=== PATIENT | female | born 1965 | race Caucasian/White ===

== ENCOUNTER 2016-12-31 05:57 | Emergency (ER) | payer SELFPAY ==
[~2016-12-31] VITALS: Ht 152.4 cm; Wt 67.0 kg
[2016-12-31 05:59] VITALS: BP 128/77; PULSE 102; RESP 16; TEMP 98; O2SAT 99
[2016-12-31] MEDS ORDERED: ZOFR4TAB PO (06:20)
[2016-12-31] MEDS ORDERED: BACT800T5 PO (06:20)
--- NOTE | 2016-12-31 06:23 | PD ---
HPI Chief Complaint: Cold / Flu Symptoms Time Seen by Provider: 06:20 Travel History International Travel<30 days: No Contact w/Intl Traveler<30days: No Traveled to known affect area: No History of Present Illness HPI 51-year-old white female presents to emergency department with a complaint of cough and congestion. She states that she's been sick now for the last for 5 days. It initially started off with nausea, vomiting and diarrhea. She last had vomiting last evening had some loose stool this morning. She has also developed some sinus congestion, runny nose, sore throat, cough, colored sputum and general malaise. She denies any abdominal pain. No dysuria or frequency. No rashes or lesions. Symptoms are moderate. She is a smoker. PFSH Past Medical History Depression: Yes Diabetes: Yes Patient Takes Glucophage: Yes Diminished Hearing: No Hypertension: Yes Tetanus Vaccination: Unknown Influenza Vaccination: No ?: Not Past Surgical History Surgical History: No Previous Surgery Social History Alcohol Use: No Tobacco Use: No Substance Use: No Allergies-Medications (Allergen,Severity, Reaction): Coded Allergies: Buspar (Verified Allergy, Unknown, 12/31/16) Chantix (Verified Allergy, Unknown, 12/31/16) Cipro (Verified Allergy, Unknown, 12/31/16) Wellbutrin (Verified Allergy, Unknown, 12/31/16) Review of Systems Except as stated in HPI: all other systems reviewed are Neg General / Constitutional: Positive: Fever, Chills Eyes: No: Blurred Vision, Photophobia HENT: Positive: Sore Throat, Congestion, No: Headaches, Earache Cardiovascular: No: Chest Pain or Discomfort, Palpitations Respiratory: Positive: Cough, No: Shortness of Breath, Wheezing Gastrointestinal: Positive: Nausea, Vomiting, Diarrhea, No: Abdominal Pain Genitourinary: No: Frequency, Dysuria Musculoskeletal: No: Myalgias, Arthralgias Skin: No Rash Physical Exam Narrative GENERAL: Well-developed, well-nourished in no acute distress. Nontoxic appearing. HEAD: Normocephalic, atraumatic. EYES: Pupils equal round and reactive. Extraocular motions intact. No scleral icterus. No injection or drainage. ENT: TMs clear without erythema. The external auditory canals clear. Nose: clear . Posterior pharynx is pink and moist. No tonsillar edema or exudate. Uvula midline. Airway patent. NECK: Trachea midline.Supple, nontender, moves head freely. No central bony tenderness or spasm. CARDIOVASCULAR: Regular rate and rhythm without murmurs, gallops, or rubs. RESPIRATORY: Few rhonchi. No wheezes or Rales. GASTROINTESTINAL: Abdomen soft, non-tender, nondistended. No hepato-splenomegaly , or palpable masses. No guarding. EXTREMITIES: No clubbing, cyanosis, or edema. No joint tenderness, effusion, or edema noted. BACK: Nontender without deformity or crepitance. No flank tenderness. Data Data Last Documented VS Vital Signs Date Time Temp Pulse Resp B/P Pulse Ox O2 Delivery O2 Flow Rate FiO2 12/31/16 06:07 16 12/31/16 05:59 98.0 102 128/77 99 MDM Medical Decision Making Medical Screen Exam Complete: Yes Emergency Medical Condition: Yes Medical Record Reviewed: Yes Differential Diagnosis MDM: High Differential diagnoses: Pneumonia, bronchitis, URI, asthma, RAD, vomiting, diarrhea Narrative Course This is bronchitis, vomiting, diarrhea Diagnosis Primary Impression: Bronchitis Additional Impressions: Diarrhea Qualified Code: R19.7 - Diarrhea, unspecified type Vomiting Qualified Code: R11.10 - Non-intractable vomiting, presence of nausea not specified, unspecified vomiting type Patient Instructions: General Instructions Departure Forms: Tests/Procedures, Work Release Special Instructions: No work 2-3 days. Additional Instructions: Rest. Increase fluids. Tylenol and Advil. Robitussin-DM. Bactrim DS. Zofran for nausea. Imodium A-D for diarrhea. Followup with your DrAnge in one week. Return to the ER for any problems. Med/Other Pt SpecificInfo: Prescription(s) given Scripts Ondansetron (Zofran)4 Mg Tab4 Mg PO Q6HR PRN (NAUSEA OR VOMITING) #6 TAB Prov:Noelle Philippe MD 12/31/16 Sulfamethoxazole-Trimethoprim (Bactrim DS)800-160 Mg Tab1 Tab PO BID #14 TAB Prov:Noelle Philippe MD 12/31/16 Disposition: 01 DISCHARGE HOME Condition: Stable Ramin Weaver Dec 31, 2016 06:23
[2016-12-31] MEDS ORDERED: CLON1 PO (06:24)
[2016-12-31] MEDS ORDERED: NORT75CA PO (06:24)
[2016-12-31] MEDS ORDERED: CARV12.5 PO (06:24)
[2016-12-31] MEDS ORDERED: BENA20TA PO (06:24)
[2016-12-31] MEDS ORDERED: METF1000 PO (06:24)
[2016-12-31] MEDS ORDERED: CITA20TA4 PO (06:24)
== END 2016-12-31 06:29 | disposition home or self-care (01) ==
LOC: NEPB 05:57
DX: J40 Bronchitis, not specified as acute or chronic (principal); R19.7 Diarrhea, unspecified; R11.10 Vomiting, unspecified; E11.9 Type 2 diabetes mellitus without complications; I10 Essential (primary) hypertension
CPT/HCPCS: 99283

== ENCOUNTER 2017-01-05 05:03 | Inpatient (IN) | payer SELFPAY ==
[~2017-01-05] VITALS: Ht 152.4 cm; Wt 69.7 kg
[2017-01-05] VITALS (9 sets, daily range): BP systolic 83–124; BP diastolic 53–71; PULSE 84–102; RESP 16–20; TEMP 96.3–97.9; O2SAT 94–99
[~2017-01-05 05:03] MED LIST: BACT800T5 PO; BENA20TA PO; CARV12.5 PO; CITA20TA4 PO; CLON1 PO; METF1000 PO; NORT75CA PO; ZOFR4TAB PO
[2017-01-05] MEDS ORDERED: methylPREDNISolone SOD SUCC 125 MG/2 ML VIAL IV PUSH ONE ×2 (05:30→05:45)
[2017-01-05] MEDS ORDERED: SODIUM CHLOR 0.9% 1000 ML INJ 1,000 ML IV ONE ×2 (05:30→06:45)
[2017-01-05] MEDS: RESP: ALBUTEROL 2.5 MG/IPRATROPIUM 0.5 MG NEB (SCH) INH (05:34)
[2017-01-05 05:37] LABS: BLOOD, URINE SMALL (NEG); GLUCOSE,URINE NEG (NEG); HYALINE CAST, URINE 1 /lpf (RARE); KETONE, URINE NEG (NEG); MUCUS URINE FEW /lpf (OCC); NITRITE,URINE NEG (NEG); SQUAMOUS EPITHELIAL CELL URINE 2 /hpf (0-5); URINE COLOR YELLOW (YELLW/STRAW)
[2017-01-05 05:38] LABS: COMMENT (UR) CULT NOT INDICATED; CULTURE IF INDICATED CULT NOT INDICATED
[2017-01-05 05:39] LABS: BASOPHIL % 0.5 % (0.0-2.0); EOSINOPHIL # 0.2 TH/MM3 (0-0.4); EOSINOPHIL % 1.5 % (0.0-4.0); HEMATOCRIT 38.5 % (35.0-46.0); HEMO FLAGS DIFF FINAL; LYMPH % 10.9 % (9.0-44.0); LYMPHOCYTE # 1.1 TH/MM3 (1.0-4.8); MEAN CELL VOLUME 85.6 FL (80.0-100.0); MEAN CORPUSCULAR HEMOGLOBIN 30.7 PG (27.0-34.0); MEAN CORPUSCULAR HGB CONC 35.8 % (32.0-36.0); MONO % 9.4 % (0.0-8.0); NEUT % 77.7 % (16.0-70.0); PLATELET COUNT 347 TH/MM3 (150-450); RED BLOOD COUNT 4.49 MIL/MM3 (4.00-5.30); WHITE BLOOD COUNT 10.3 TH/MM3 (4.0-11.0)
--- NOTE | 2017-01-05 05:40 | PD ---
HPI Chief Complaint: Abdominal Pain Time Seen by Provider: 05:14 Travel History International Travel<30 days: No Contact w/Intl Traveler<30days: No Traveled to known affect area: No History of Present Illness HPI This is a 51-year-old female history of hypertension, diabetes mellitus, tobacco use, who presents today with complaints of generalized malaise. Patient states she was seen here a week ago and diagnosed with a sinus infection. She was started on Bactrim. She states that she's had loose stools but reports they are actually less than when she had the bronchitis/sinusitis. She reports having generalized weakness. She also reports pain in her upper abdominal area. She reports that she has had fevers but states that her temperature is normally 95 and so her fevers are normal temperatures. She denies any chills. She does report a cough with no production. PFSH Past Medical History Depression: Yes Diabetes: Yes Patient Takes Glucophage: Yes Diminished Hearing: No Hypertension: Yes Tetanus Vaccination: Unknown Influenza Vaccination: No ?: Not Social History Alcohol Use: No Tobacco Use: Yes Substance Use: No Allergies-Medications (Allergen,Severity, Reaction): Coded Allergies: Buspar (Verified Allergy, Unknown, 01/05/17) Chantix (Verified Allergy, Unknown, 01/05/17) Cipro (Verified Allergy, Unknown, 01/05/17) Wellbutrin (Verified Allergy, Unknown, 01/05/17) Reported Meds & Prescriptions Reported Meds & Active Scripts Active Zofran (Ondansetron HCl) 4 Mg Tab 4 Mg PO Q6HR PRN Bactrim DS (Sulfamethoxazole-Trimethoprim) 800-160 Mg Tab 1 Tab PO BID Reported Klonopin (Clonazepam) 1 Mg Tab 1 Mg PO BID Nortriptyline (Nortriptyline HCl) 75 Mg Cap 75 Mg PO HS Citalopram (Citalopram Hydrobromide) 20 Mg Tab 20 Mg PO DAILY Coreg (Carvedilol) 12.5 Mg Tab 12.5 Mg PO BID Benazepril (Benazepril HCl) 20 Mg Tab 20 Mg PO DAILY Metformin (Metformin HCl) 1,000 Mg Tab 1,000 Mg PO BIDPC With meals Review of Systems Except as stated in HPI: all other systems reviewed are Neg General / Constitutional: Positive: Fever (subjective), No: Chills HENT: Positive: Headaches (mild), No: Neck Stiffness, Neck Pain Cardiovascular: No: Chest Pain or Discomfort, Palpitations Respiratory: Positive: Cough, Wheezing, No: Shortness of Breath Gastrointestinal: Positive: Nausea, Diarrhea, Abdominal Pain (epigastric discomfort), No: Vomiting Musculoskeletal: Positive: Weakness (generalized), No: Pain Neurologic: Positive: Weakness ( ), Headache (mild) Physical Exam Narrative GENERAL: Well-developed well-nourished female in no acute respiratory distress. SKIN: Warm and dry. HEAD: Atraumatic. Normocephalic. EYES: No scleral icterus. No injection or drainage. ENT: No nasal bleeding or discharge. Dry mucous membranes NECK: Trachea midline. Supple CARDIOVASCULAR: Regular rate and rhythm. No murmur appreciated. RESPIRATORY: Diffuse expiratory wheezing. No Rales appreciated. GASTROINTESTINAL: Abdomen soft, nondistended. She had subjective discomfort in her epigastrium. There was no rebound or guarding elicited. MUSCULOSKELETAL: No obvious deformities. No clubbing. No cyanosis. No edema. NEUROLOGICAL: Awake and alert. No obvious cranial nerve deficits. Motor grossly within normal limits. Normal speech. PSYCHIATRIC: Flat affect. Cooperative. Data Data Last Documented VS Vital Signs Date Time Temp Pulse Resp B/P Pulse Ox O2 Delivery O2 Flow Rate FiO2 01/05/17 06:23 84 17 96/57 99 Room Air 01/05/17 05:06 97.6 Orders Complete Blood Count With Diff (01/05/17 05:22) Comprehensive Metabolic Panel (01/05/17 05:22) Lipase (01/05/17 05:22) Urinalysis - C+S If Indicated (01/05/17 05:22) Chest, Single Ap (01/05/17 05:22) Iv Access Insert/Monitor (01/05/17 05:22) Ecg Monitoring (01/05/17 05:22) Albuterol-Ipratropium Neb (Duoneb Neb) (01/05/17 05:30) Sodium Chlor 0.9% 1000 Ml Inj (Ns 1000 M (01/05/17 05:30) Methylprednisolone So Succ Inj (Solumedr (01/05/17 05:45) Sodium Chlor 0.9% 1000 Ml Inj (Ns 1000 M (01/05/17 06:45) Labs Laboratory Tests Test 01/05/17 01/05/17 05:10 05:28 Urine Color YELLOW Urine Turbidity CLEAR Urine pH 6.0 Urine Specific [place] 1.011 Urine Protein TRACE mg/dL Urine Glucose (UA) NEG mg/dL Urine Ketones NEG mg/dL Urine Occult Blood SMALL Urine Nitrite NEG Urine Bilirubin NEG Urine Urobilinogen LESS THAN 2.0 MG/DL Urine Leukocyte Esterase NEG Urine RBC 2 /hpf Urine WBC 1 /hpf Urine Squamous Epithelial 2 /hpf Cells Urine Hyaline Casts 1 /lpf Urine Mucus FEW /lpf Microscopic Urinalysis Comment CULT NOT INDICATED White Blood Count 10.3 TH/MM3 Red Blood Count 4.49 MIL/MM3 Hemoglobin 13.8 GM/DL Hematocrit 38.5 % Mean Corpuscular Volume 85.6 FL Mean Corpuscular Hemoglobin 30.7 PG Mean Corpuscular Hemoglobin 35.8 % Concent Red Cell Distribution Width 13.0 % Platelet Count 347 TH/MM3 Mean Platelet Volume 8.0 FL Neutrophils (%) (Auto) 77.7 % Lymphocytes (%) (Auto) 10.9 % Monocytes (%) (Auto) 9.4 % Eosinophils (%) (Auto) 1.5 % Basophils (%) (Auto) 0.5 % Neutrophils # (Auto) 8.0 TH/MM3 Lymphocytes # (Auto) 1.1 TH/MM3 Monocytes # (Auto) 1.0 TH/MM3 Eosinophils # (Auto) 0.2 TH/MM3 Basophils # (Auto) 0.0 TH/MM3 CBC Comment DIFF FINAL Differential Comment Sodium Level 135 MEQ/L Potassium Level 3.6 MEQ/L Chloride Level 102 MEQ/L Carbon Dioxide Level 24.1 MEQ/L Anion Gap 9 MEQ/L Blood Urea Nitrogen 9 MG/DL Creatinine 0.78 MG/DL Random Glucose 173 MG/DL Calcium Level 9.1 MG/DL Total Bilirubin 0.2 MG/DL Aspartate Amino Transf 22 U/L (AST/SGOT) Alanine Aminotransferase 33 U/L (ALT/SGPT) Alkaline Phosphatase 81 U/L Total Protein 7.5 GM/DL Albumin 3.4 GM/DL Lipase 3809 U/L [facility] Medical Decision Making Medical Screen Exam Complete: Yes Emergency Medical Condition: Yes Medical Record Reviewed: Yes Differential Diagnosis Dehydration versus electrolyte arrangement versus pancreatitis Narrative Course 51-year-old female presents today with complaints of generalized malaise and abdominal pain. The patient has a history of diabetes mellitus. Blood work shows a lipase of 3900. The patient has no previous history of diabetes mellitus. The patient is not a heavy alcohol drinker. She's been given 1 L of IV fluid bolus followed by a second. There is a call out to the admitting physician. At this point the patient does not require pain medication. Patient also had diffuse expiratory wheezes and was given 2 nebulizer treatments. Diagnosis Primary Impression: Pancreatitis, acute Additional Impressions: Diabetes mellitus History of hypertension Reactive airway disease tobaccoism Meet Stewart MD Jan 05, 2017 05:40
[2017-01-05 06:07] LABS: ALT (GPT) 33 U/L (10-53); ANION GAP 9 MEQ/L (5-15); AST (GOT) 22 U/L (15-37); BICARBONATE 24.1 MEQ/L (21.0-32.0); BLOOD UREA NITROGEN 9 MG/DL (7-18); CHLORIDE 102 MEQ/L (98-107); POTASSIUM 3.6 MEQ/L (3.5-5.1); SODIUM (NA) 135 MEQ/L (136-145)
[2017-01-05 06:09] LABS: ALKALINE PHOSPHATASE 81 U/L (45-117); TOTAL BILIRUBIN ADULT 0.2 MG/DL (0.2-1.0)
--- NOTE | 2017-01-05 06:26 | RADRPT ---
EXAM DATE/TIME: 01/05/2017 05:40 [place] COMPARISON: No previous studies available for comparison. INDICATIONS : Shortness of breath. MEDICAL HISTORY : Diabetes mellitus type II. SURGICAL HISTORY : None. ENCOUNTER: Initial ACUITY: 1 day PAIN SCORE: 0/10 LOCATION: Bilateral chest FINDINGS: A single view of the chest demonstrates the lungs to be symmetrically aerated without evidence of mas s, infiltrate or effusion. The cardiomediastinal contours are unremarkable. Osseous structures are intact. CONCLUSION: No acute cardiopulmonary process. Stanley Piña MD on January 05, 2017 at 6:24 Board Certified Radiologist. This report was verified electronically.
[2017-01-05] MEDS ORDERED: ACETAMINOPHEN/HYDROcodone 325 MG/5 MG TAB PO PRN (07:00)
[2017-01-05] MEDS ORDERED: SODIUM CHLORIDE 0.9% FLUSH 5 ML FLUSH FLUSH PRN (07:00)
[2017-01-05] MEDS ORDERED: MORPHINE SULFATE 4 MG/ML INJ IV PRN (07:00)
[2017-01-05] MEDS ORDERED: ONDANSETRON HCL 4 MG/2 ML VIAL IVP PRN (07:00)
[2017-01-05] MEDS ORDERED: RESP: ALBUTEROL 2.5 MG/IPRATROPIUM 0.5 MG NEB (PRN) NEB (07:00)
[2017-01-05] MEDS ORDERED: BISACODYL 10 MG SUPP PR PRN (07:00)
[2017-01-05] MEDS ORDERED: DEXTROSE 50% IN WATER 50 ML VIAL(D50) IV PUSH PRN (07:00)
[2017-01-05] MEDS ORDERED: ACETAMINOPHEN 325 MG TAB PO PRN (07:00)
[2017-01-05] MEDS ORDERED: GLUCAGON 1 MG/ML VIAL OTHER PRN (07:00)
[2017-01-05] MEDS: CARVEDILOL 12.5 MG TAB PO SCH ×2 (09:00→21:44)
[2017-01-05] MEDS: clonazePAM 1 MG TAB PO SCH ×2 (09:00→22:49)
[2017-01-05] MEDS ORDERED: LISINOPRIL 20 MG TAB PO SCH (09:00)
[2017-01-05] MEDS: CITALOPRAM HYDROBROMIDE 20 MG TAB PO SCH (09:00)
[2017-01-05] MEDS: INSULIN ASPART SUPPLEMENTAL SCALE SQ SCH ×4 (09:29→22:00)
[2017-01-05] MEDS: PANTOPRAZOLE SODIUM 40 MG VIAL IV PUSH SCH ×2 (09:29→17:41)
[2017-01-05] MEDS: SODIUM CHLOR 0.9% 1000 ML INJ 1,000 ML IV SCH ×2 (09:29→17:47)
[2017-01-05] MEDS: SODIUM CHLORIDE 0.9% FLUSH 5 ML FLUSH FLUSH SCH ×2 (09:30→21:44)
[2017-01-05] MEDS: methylPREDNISolone SOD SUCC 40 MG/1 ML VIAL IV PUSH SCH ×2 (11:09→17:24)
[2017-01-05] MEDS ORDERED: NORTRIPTYLINE HCL 25 MG CAP PO SCH (21:00)
[2017-01-06] VITALS: BP 93/58; PULSE 85; RESP 17; TEMP 96; O2SAT 94
[2017-01-06] MEDS: methylPREDNISolone SOD SUCC 40 MG/1 ML VIAL IV PUSH SCH ×2 (01:40→05:43)
[2017-01-06 04:00] VITALS: BP 95/55; PULSE 81; RESP 17; TEMP 96.6; O2SAT 95
[2017-01-06] MEDS: SODIUM CHLOR 0.9% 1000 ML INJ 1,000 ML IV SCH (04:39)
[2017-01-06] MEDS: PANTOPRAZOLE SODIUM 40 MG VIAL IV PUSH SCH (05:43)
[2017-01-06] MEDS: INSULIN ASPART SUPPLEMENTAL SCALE SQ SCH (06:04)
[2017-01-06 07:07] LABS: HEMATOCRIT 34.8 % (35.0-46.0); MEAN CELL VOLUME 87.3 FL (80.0-100.0); MEAN CORPUSCULAR HEMOGLOBIN 29.3 PG (27.0-34.0); MEAN CORPUSCULAR HGB CONC 33.6 % (32.0-36.0); PLATELET COUNT 315 TH/MM3 (150-450); RED BLOOD COUNT 3.99 MIL/MM3 (4.00-5.30); RED CELL DISTRIBUTION WIDTH 12.9 % (11.6-17.2)
[2017-01-06 07:09] LABS: HEMO FLAGS AUTO DIFF
[2017-01-06 07:40] LABS: ALKALINE PHOSPHATASE 65 U/L (45-117); ALT (GPT) 27 U/L (10-53); ANION GAP 11 MEQ/L (5-15); AST (GOT) 10 U/L (15-37); BICARBONATE 19.5 MEQ/L (21.0-32.0); BLOOD UREA NITROGEN 8 MG/DL (7-18); CHLORIDE 110 MEQ/L (98-107); GLOMERULAR FILTRATION RATE 110 ML/MIN (>89); POTASSIUM 3.7 MEQ/L (3.5-5.1); SODIUM (NA) 140 MEQ/L (136-145); TOTAL BILIRUBIN ADULT 0.1 MG/DL (0.2-1.0)
--- NOTE | 2017-01-06 07:58 | HHI.HP ---
[facility] Service [facility] Primary Care Physician No Primary Care Physician Admission Diagnosis Acute pancreatitis, reactive airway disease, diabetes mellitus, htn Diagnoses: (1) Pancreatitis, acute Diagnosis: Principal (2) Reactive airway disease Diagnosis: Principal Chief Complaint: abdominal pain Travel History International Travel<30 Days: No Contact w/Intl Traveler <30 Da: No Traveled to Known Affected Are: No History of Present Illness patient is a 51 y/o female with history of hypertension, diabetes, chronic smoker who presented to ER with abdominal pain. she says that she some coughing and sneezing last week and she was seen in ER about a week ago and was discharged home with antibiotic with the impression of bronchitis. she started to have epigastric pain on . pain was associated with nausea and some chills. she denies any fever or diarrhea. the pain gradually got worse to the extent that she decided to come back to ER. Review of Systems Constitutional: COMPLAINS OF: Chills, DENIES: Fever, Weight loss, Night Sweats Eyes: DENIES: Blurred vision, Diplopia, Vision loss, Double Vision Ears, nose, mouth, throat: DENIES: Tinnitus, Vertigo, Throat pain, Epistaxis Respiratory: COMPLAINS OF: Cough, DENIES: Apneas, Snoring, Wheezing, Hemoptysis, Sputum production, Shortness of breath Cardiovascular: DENIES: Chest pain, Palpitations, Syncope, Dyspnea on Exertion , PND, Lower Extremity Edema, Orthopnea, Claudication Gastrointestinal: COMPLAINS OF: Abdominal pain, DENIES: Black stools, Bloody stools, Constipation, Diarrhea, Nausea, Vomiting, Difficulty Swallowing, Anorexia Genitourinary: DENIES: Urinary frequency, Urgency, Hematuria, Dysuria Musculoskeletal: DENIES: Joint pain, Muscle aches, Stiffness, Joint Swelling Integumentary: DENIES: Rash Neurologic: DENIES: Abnormal gait, Headache, Localized weakness, Paresthesias, Seizures, Speech Problems, Tremor, Poor Balance Psychiatric: DENIES: Anxiety, Confusion, Mood changes, Depression, Hallucinations, Agitation, Suicidal Ideation, Homicidal Ideation, Delusions Past Family Social History Past Medical History hypertension diabetes mellitus Past Surgical History cholecystectomy sinus surgery Reported Medications Klonopin (Clonazepam) 1 Mg Tab 1 Mg PO BID Nortriptyline (Nortriptyline HCl) 75 Mg Cap 75 Mg PO HS Citalopram (Citalopram Hydrobromide) 20 Mg Tab 20 Mg PO DAILY Coreg (Carvedilol) 12.5 Mg Tab 12.5 Mg PO BID Benazepril (Benazepril HCl) 20 Mg Tab 20 Mg PO DAILY Metformin (Metformin HCl) 1,000 Mg Tab 1,000 Mg PO BIDPC With meals Allergies: Coded Allergies: Buspar (Verified Allergy, Unknown, 01/05/17) Chantix (Verified Allergy, Unknown, 01/05/17) Cipro (Verified Allergy, Unknown, 01/05/17) Wellbutrin (Verified Allergy, Unknown, 01/05/17) Active Ordered Medications Current Medications Albuterol/ Ipratropium (Duoneb Neb) 1 ampule Q15M INH Last administered on 05:34; Start 01/05/17 at 05:30; Stop 01/05/17 at 05:46; Status DC Methylprednisolone Sodium Succinate 125 mg 125 mg ONCE ONCE IV PUSH ; Start 01/05/17 at 05:30; Stop 01/05/17 at 05:31; Status Cancel Sodium Chloride (NS 1000 ml Inj) 1,000 ml @ 999 mls/hr BOLUS ONCE IV Last administered on 01/05/17 05:34; Start 01/05/17 at 05:30; Stop 01/05/17 at 06:30; Status DC Methylprednisolone Sodium Succinate 125 mg 125 mg ONCE ONCE IV PUSH Last administered on 01/05/17 05:46; Start 01/05/17 at 05:45; Stop 01/05/17 at 05:46; Status DC Sodium Chloride (NS 1000 ml Inj) 1,000 ml @ 999 mls/hr BOLUS ONCE IV Last administered on 01/05/17 06:44; Start 01/05/17 at 06:45; Stop 01/05/17 at 07:45; Status DC Dextrose (D50w (Vial) Inj) 25 ml UNSCH PRN IV PUSH HYPOGLYCEMIA-SEE COMMENTS; Start 01/05/17 at 07:00 Glucagon (Glucagon Inj) 1 mg UNSCH PRN OTHER HYPOGLYCEMIA-SEE COMMENTS; Start 01/05/17 at 07:00 Insulin Aspart (NovoLOG SUPPLEMENTAL SCALE) 1 ACHS SLIDING SCALE SQ Last administered on 01/06/17 06:04; Start 01/05/17 at 07:00 Albuterol/ Ipratropium (Duoneb Neb) 1 ampule Q4HR NEB PRN NEB SOB/WHEEZING; Start 01/05/17 at 07:00 Methylprednisolone Sodium Succinate 40 mg 40 mg Q6HR IV PUSH Last administered on 01/06/17 05:43; Start 01/05/17 at 12:00 Sodium Chloride (NS 1000 ml Inj) 1,000 ml @ 100 mls/hr Q10H IV Last administered on 01/06/17 04:39; Start 01/05/17 at 08:00 IV Flush (NS Flush) 2 ml UNSCH PRN FLUSH FLUSH AFTER USING IV ACCESS; Start 01/05/17 at 07:00 IV Flush (NS Flush) 2 ml BID FLUSH Last administered on 01/05/17 09:30; Start 01/05/17 at 09:00 Ondansetron HCl (Zofran Inj) 4 mg Q6H PRN IVP NAUSEA OR VOMITING; Start at 07:00 Bisacodyl (Dulcolax Supp) 10 mg DAILY PRN ID CONSTIPATION; Start 01/05/17 at 07: 00 Acetaminophen (Tylenol) 650 mg Q6H PRN PO FEVER/PAIN SCALE 1 TO 2; Start at 07:00 Acetaminophen/ Hydrocodone Bitart ([place] 5-325 Mg) 1 tab Q4H PRN PO PAIN SCALE 3 TO 5; Start 01/05/17 at 07:00 Morphine Sulfate (Morphine Inj) 2 mg Q3H PRN IV Pain 6-10; Start 01/05/17 at 07: 00 Pantoprazole Sodium (Protonix Inj) 40 mg Q12H IV PUSH Last administered on 05:43; Start 01/05/17 at 07:00 Lisinopril (Prinivil) 20 mg DAILY PO ; Start 01/05/17 at 09:00 Carvedilol (Coreg) 12.5 mg BID PO ; Start 01/05/17 at 09:00 Citalopram Hydrobromide (CeleXA) 20 mg DAILY PO ; Start 01/05/17 at 09:00 Clonazepam (KlonoPIN) 1 mg BID PO Last administered on 01/05/17 22:49; Start at 09:00 Nortriptyline HCl (Pamelor) 75 mg HS PO Last administered on 01/05/17 21:47; Start 01/05/17 at 21:00 Family History not relevant to this admission. Social History trying to quit smoking. drinks occasionally. Physical Exam Vital Signs Vital Signs Date Time Temp Pulse Resp B/P Pulse Ox O2 Delivery O2 Flow Rate FiO2 01/06/17 04:00 96.6 81 17 95/55 95 01/06/17 00:00 96.0 85 17 93/58 94 01/05/17 20:00 96.3 96 18 96/60 96 01/05/17 15:30 97.8 85 20 83/53 94 01/05/17 13:17 97.9 90 20 93/62 96 01/05/17 11:01 90 18 100/58 96 Room Air Physical Exam GENERAL: This is a well-nourished, well-developed patient, in no apparent distress. SKIN: No rashes, ecchymoses or lesions. Cool and dry. HEAD: Atraumatic. Normocephalic. No temporal or scalp tenderness. EYES: Pupils equal round and reactive. Extraocular motions intact. No scleral icterus. No injection or drainage. ENT: Nose without bleeding, purulent drainage or septal hematoma. Throat without erythema, tonsillar hypertrophy or exudate. Uvula midline. Airway patent. NECK: Trachea midline. No JVD or lymphadenopathy. Supple, nontender, no meningeal signs. CARDIOVASCULAR: Regular rate and rhythm without murmurs, gallops, or rubs. RESPIRATORY: Clear to auscultation. Breath sounds equal bilaterally. No wheezes , rales, or rhonchi. GASTROINTESTINAL: Abdomen soft, minimal epigastric tenderness, nondistended. No hepato-splenomegaly, or palpable masses. No guarding. MUSCULOSKELETAL: Extremities without clubbing, cyanosis, or edema. No joint tenderness, effusion, or edema noted. No calf tenderness. Negative Homans sign bilaterally. NEUROLOGICAL: Awake and alert. Cranial nerves II through XII intact. Motor and sensory grossly within normal limits. Five out of 5 muscle strength in all muscle groups. Normal speech. Laboratory Laboratory Tests Test 01/06/17 05:40 White Blood Count 15.0 Red Blood Count 3.99 Hemoglobin 11.7 Hematocrit 34.8 Mean Corpuscular Volume 87.3 Mean Corpuscular Hemoglobin 29.3 Mean Corpuscular Hemoglobin 33.6 Concent Red Cell Distribution Width 12.9 Platelet Count 315 Mean Platelet Volume 8.3 Neutrophils (%) (Auto) Lymphocytes (%) (Auto) Monocytes (%) (Auto) Eosinophils (%) (Auto) Basophils (%) (Auto) Neutrophils # (Auto) Lymphocytes # (Auto) Monocytes # (Auto) Eosinophils # (Auto) Basophils # (Auto) CBC Comment AUTO DIFF Sodium Level 140 Potassium Level 3.7 Chloride Level 110 Carbon Dioxide Level 19.5 Anion Gap 11 Blood Urea Nitrogen 8 Creatinine 0.58 Estimat Glomerular Filtration 110 Rate Random Glucose 185 Calcium Level 7.8 Total Bilirubin 0.1 Aspartate Amino Transf 10 (AST/SGOT) Alanine Aminotransferase 27 (ALT/SGPT) Alkaline Phosphatase 65 Total Protein 6.4 Albumin 2.7 Lipase 269 Result Diagram: 01/06/1740 01/06/1740 Imaging Last Impressions Chest X-Ray 01/05/17521 Signed Impressions: Service Date/Time: Thursday, January 05, 2017 05:40 - CONCLUSION: No acute cardiopulmonary process. Stanley Piña MD Assessment and Plan Assessment and Plan A/P - acute pancreatitis- improving will advance the diet to full liquid- continue with IV fluid and pain control- -acute bronchitis; improving ;taper down IV steroid- neb treatment as needed -hypertension; hold BP meds for now due to low-normal BP's -diabetes mellitus; accu-check with SSI -leukocytosis; due to steroids- afebrile -DVT prophylaxis with subq Lovenox Discussed Condition With the patient. Physician Certification 2 Midnight Certification Type: Admission for Inpatient Services Order for Inpatient Services The services are ordered in accordance with Medicare regulations or non- Medicare payer requirements, as applicable. In the case of services not specified as inpatient-only, they are appropriately provided as inpatient services in accordance with the 2-midnight benchmark. Estimated LOS (days): 2 days is the estimated time the patient will need to remain in the hospital, assuming treatment plan goals are met and no additional complications. Post-Hospital Plan: Home Problem Qualifiers (1) Pancreatitis, acute: Qualified Code: K85.90 - Acute pancreatitis, unspecified complication status, unspecified pancreatitis type (2) Reactive airway disease: Qualified Code: J45.909 - Reactive airway disease, unspecified asthma severity , uncomplicated Kieran Licona MD Jan 06, 2017 07:58
[2017-01-06 08:00] VITALS: BP 100/64; PULSE 77; RESP 16; TEMP 96.2; O2SAT 97
[2017-01-06 08:00] LABS: BANDS 5 % (0-6); NEUTROPHIL # MANUAL DIFF 13.5 TH/MM3 (1.8-7.7); PLATELET ESTIMATE SMEAR NORMAL (NORMAL); PLATELET MORPHOLOGY NORMAL (NORMAL); POLYS (SEG NEUTROPHILS) 85 % (16-70); SCAN/DIFF FINAL DIFF MANUAL; WBC DIFF SAMPLE 100
[2017-01-06] MEDS: SODIUM CHLORIDE 0.9% FLUSH 5 ML FLUSH FLUSH SCH (08:13)
[2017-01-06] MEDS: clonazePAM 1 MG TAB PO SCH (08:13)
[2017-01-06] MEDS: CITALOPRAM HYDROBROMIDE 20 MG TAB PO SCH (08:13)
[2017-01-06] MEDS ORDERED: ENOXAPARIN SODIUM 40 MG/0.4 ML SYRINGE SQ SCH (08:15)
[2017-01-06] MEDS ORDERED: methylPREDNISolone SOD SUCC 40 MG/1 ML VIAL IV PUSH SCH (09:00)
[2017-01-06 13:43] LABS: HEMOGLOBIN A1a 1.4 %; HEMOGLOBIN A1b 1.4 %; HEMOGLOBIN Ao 82.2 %; HEMOGLOBIN F 1.1 %; HEMOGLOBIN LA1C 2.5 %; HEMOGLOBIN P3 4.4 %
== END 2017-01-06 10:45 | disposition left against medical advice (07) | DRG 440 ==
LOC: NEPE 05:03 → NEDA 06:57 → HOCB 12:54
PROVIDERS: ADMIT Internal Medicine; ATTEND Internal Medicine
DX: K85.90 Acute pancreatitis without necrosis or infection, unspecified (principal); I10 Essential (primary) hypertension; E11.9 Type 2 diabetes mellitus without complications; F17.210 Nicotine dependence, cigarettes, uncomplicated; Z79.84 Long term (current) use of oral hypoglycemic drugs; J45.909 Unspecified asthma, uncomplicated
CPT/HCPCS: 71010; 80053; 81001; 82948; 83036; 83690; 85007; 85025; 85027; 94640; 94664; 96361; 96374; C9113; J1815; J2920; J2930; J7030

== ENCOUNTER 2017-06-03 12:10 | Emergency (ER) | payer SELFPAY ==
[~2017-06-03] VITALS: Ht 152.4 cm; Wt 72.0 kg
[2017-06-03 12:16] VITALS: BP 136/74; PULSE 97; RESP 16; TEMP 98.8; O2SAT 97
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
[2017-06-03] MEDS ORDERED: IBUPROFEN 600 MG TAB PO ONE (12:45)
[2017-06-03] MEDS ORDERED: ACETAMINOPHEN 325 MG TAB PO ONE (12:45)
[2017-06-03] MEDS ORDERED: CYCLOBENZAPRINE HCL 10 MG TAB PO ONE (12:45)
[2017-06-03] MEDS ORDERED: IBUP-232 PO (13:19)
[2017-06-03] MEDS ORDERED: CYCL1TAB29 PO (13:19)
[2017-06-03] MEDS ORDERED: ARTH650T6 PO (13:19)
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
== END 2017-06-03 13:45 | disposition home or self-care (01) ==
LOC: PHEFT 12:10
DX: M25.552 Pain in left hip (principal); Y04.2XXA Assault by strike against or bumped into by another person, initial encounter; T14.8 Other injury of unspecified body region; I10 Essential (primary) hypertension
CPT/HCPCS: 73502; 99283